=== PATIENT | female | born 1995 | race Caucasian/White ===

== ENCOUNTER 2016-10-23 17:00 | Emergency (ER) | payer MEDICAID, OTHER ==
[2016-10-23 17:07] VITALS: BP 115/82
--- NOTE | 2016-10-23 17:37 | UC ---
Respiratory Complaint HPI - HPI Summary HPI Summary: Patient presents with complaints of two day onset ear pain, sore throat and coughing. She states she has a nonproductive cough and associated chest discomfort. She reports that in the morning she hears wheezing. She denies abdominal pain, nausea, vomiting, or diarrhea. She denies any recent travel, prolonged immobility, recent surgeries, blood dyscrasias, or oral control listed as medication. - History of Current Complaint Chief Complaint: UCRespiratory Stated Complaint: COUGH,EAR & CHEST PAIN Time Seen by Provider: 10/23/16 17:09 Hx Obtained From: Patient Hx Last Menstrual Period: 10/20/16 ?: No Onset/Duration: Gradual Onset, Lasting Days Timing: Intermittent Episodes Severity Initially: Moderate Severity Currently: Moderate Character: Cough: Nonproductive Aggravating Factors: Deep Breaths, Recumbent Position Alleviating Factors: Spontaneous Resolution Associated Signs And Symptoms: Positive: Wheezing, URI - Risk Factors Pulmonary Embolism Risk Factors: Negative Cardiac Risk Factors: Negative Pseudomonas Risk Factors: Negative Tuberculosis Risk Factors: Negative - Allergies/Home Medications Allergies/Adverse Reactions: Allergies Allergy/AdvReac Type Severity Reaction Status Date / Time Amoxicillin Allergy Rash Verified 10/23/16 17:07 PMH/Surg Hx/FS Hx/Imm Hx Previously Healthy: Yes - Surgical History Surgical History: Yes Surgery Procedure, Year, and Place: bilat ear tubes, t&a - Family History Known Family History: Positive: None - Social History Occupation: Employed Full-time Lives: Alone Alcohol Use: Daily Substance Use Type: None Smoking Status (MU): Never Smoked Tobacco Review of Systems Constitutional: Fatigue Skin: Negative Eyes: Negative ENT: Sore Throat, Ear Ache Respiratory: Cough Cardiovascular: Negative All Other Systems Reviewed And Are Negative: Yes Physical Exam Triage Information Reviewed: Yes Appearance: Well-Appearing Vital Signs: Initial Vital Signs Temp 97.7 F 10/23/16 17:02 Pulse 91 10/23/16 17:02 Resp 18 10/23/16 17:02 BP 115/82 10/23/16 17:02 Pulse Ox 99 10/23/16 17:02 Vital Signs Reviewed: Yes Eye Exam: Normal ENT: Positive: TM dull Neck exam: Normal Respiratory: Positive: Decreased breath sounds, Rhonchi Abdominal Exam: Normal Musculoskeletal Exam: Normal Skin Exam: Normal UC Diagnostic Evaluation - Laboratory O2 Sat by Pulse Oximetry: 99 Respiratory Course/Dx - Course Course Of Treatment: Patient presents with complaints of ear pain, sore throat, and persistent coughing. She report audible wheezing in the morning. She clinically presents with bronchitis, and I feel her chest pain in pleuritic. Her heart score is 0, perck score 0. I do not suspect PE given these scores as probable soure of her pain. She was given RC for Cefdinir as she is Penicillin allergic, and also prednisone 15mg/3 ml po bid x 5 days. The medications, exspected course was reviewed with the patient and if for any reason her symptoms do not improve as anticipated she was told to follow up with her PCP, or return to the clinic. She verbalzied understanding of the discharge instructions and in agreement with the discharge plan. - Differential Dx/Diagnosis Differential Diagnosis/HQI/PQRI: Bronchitis Provider Diagnoses: bronchitis Discharge - Discharge Plan Condition: Stable Disposition: HOME Prescriptions: Cefdinir 250mg/5 ml* [Omnicef 250 mg/5 ml*] 300 mg PO BID #60 ml PredNISOLone LIQ 5MG/ML* 15 mg PO BID #30 ml Patient Education Materials: Acute Bronchitis (ED) Referrals: Cj Becker MD [Primary Care Provider] -
== END 2016-10-23 17:30 | disposition home or self-care (01) ==
LOC: UCEAST 17:00
DX: J40 Bronchitis, not specified as acute or chronic (principal); Z88.0 Allergy status to penicillin
CPT/HCPCS: 99202; G0463